=== PATIENT | female | born 1935 | race Two or more races ===

== ENCOUNTER → 2024-06-10 | Outpatient (CLI) | payer MEDICARE, BC, SELFPAY ==
[2024-06-10 09:33] LABS: Glucose Estimated Average 160 mg/dL (80-131); Hemoglobin A1C 7.2 % Hgb (4.8-6.0)
[2024-06-10 09:58] LABS: Alanine Aminotransferase 16 U/L (10-49); Albumin, Serum 4.9 gm/dL (3.4-4.8); Albumin/Globulin Ratio 2.6 (1.2-2.2); Alkaline Phosphatase 23 U/L (46-116); Anion Gap 9 (7-16); Aspartate Amino Transferase 15 U/L (0-34); BUN/Creatinine Ratio 39 Ratio (12-20); Bilirubin,Total 0.5 mg/dL (0.3-1.2); Blood Urea Nitrogen 31 mg/dL (9-23); Carbon Dioxide 29.3 mMol/L (20.0-31.0); Cardiac Risk Estimate 3.2 RATIO (3.7-5.6); Chloride 104 mMol/L (98-107); Cholesterol 133 mg/dL (132-200); Creatinine (Component) 0.8 mg/dL (0.6-1.3); Globulin 1.9 gm/dL (2.3-3.5); Glucose 166 mg/dL (74-106); HDL Cholesterol 41 mg/dL (40-60); LDL Cholesterol,Calculated 62 mg/dL (0-130); Osmolality,Calculated 293 (275-295); Potassium 4.1 mMol/L (3.4-5.1); Sodium 142 mMol/L (136-145); Thyroid Stimulating Hormone 2.68 uIU/mL (0.55-4.78); Total Protein 6.8 gm/dL (5.7-8.2); Triglycerides 152 mg/dL (30-150); eGFR > 60 See Note
== END | disposition home or self-care (01) ==
LOC: COPL 08:14
PROVIDERS: PCP Internal Medicine; Referring Provider Internal Medicine; Visit Provider Internal Medicine
DX: E11.9 Type 2 diabetes mellitus without complications (principal); E78.5 Hyperlipidemia, unspecified; I10 Essential (primary) hypertension
CPT/HCPCS: 36415; 80053; 80061; 83036; 84443

== ENCOUNTER → 2024-07-15 | Outpatient (CLI) | payer MEDICARE, BC, SELFPAY ==
--- NOTE | 2024-07-15 14:45 | XR_ITS ---
Examination: Screening digital mammography, bilateral Computer aided detection 3-D breast Tomosynthesis, bilateral Date and time of exam: July 15, 2024 1450 hours Compared to mammograms dating to June 13, 2019 Indication: Screening Technique: Nonmagnified MLO, CC views of the breasts to been obtained, reconstructed from 3-D Tomosynthesis images. R2 computer aided detection program utilized for evaluation of suspicious masses and/or abnormal calcifications. 3-D Tomosynthesis images obtained. Findings: The breasts are extremely dense which limits the sensitivity of mammography Benign calcifications. No definite suspicious masses Impression: BI-RADS category II: Benign Findings. Recommend 1 year follow-up mammogram. Recommend baseline bilateral breast sonography, given the extremely dense breast architecture
== END | disposition home or self-care (01) ==
LOC: CDIM 14:23
PROVIDERS: Referring Provider Specialist; Visit Provider Specialist
DX: Z12.31 Encounter for screening mammogram for malignant neoplasm of breast (principal); R92.323 Mammographic fibroglandular density, bilateral breasts; R92.1 Mammographic calcification found on diagnostic imaging of breast
CPT/HCPCS: 77063; 77067

== ENCOUNTER 2024-07-16 08:00 | Emergency (ER) | payer MEDICARE, BC, SELFPAY ==
[2024-07-16 08:12] VITALS: BP 173/88; PULSE 85; RESP 18; TEMP 36.7; O2SAT 95; BMI 22.0
--- NOTE | 2024-07-16 08:22 | XR_ITS ---
Examination: CT cervical spine without contrast 2-D sagittal reconstructions 2-D coronal reconstructions 3-D reconstructions. Exam date and time:July 16, 2024 0913 hours INDICATIONS: Patient fell this morning with injury to the neck, neck pain CTDI:vol (mGy) 7.71 DLP: (mGycm) 156 Technique: Multiple 2 mm axial sections of the cervical spine have been obtained. The coronal and sagittal reconstructions have been obtained. 3-D reconstructions have been obtained. Low dose protocols were performed. One or more of the following dose reduction techniques were used; automated exposure control, adjustment of the mA and/or KV according to patient size, use of iterative reconstruction technique. Findings: Axial sections demonstrate intact base of the skull. Advanced degenerative disc disease C4-C5, C5-C6, C6-C7 C1 exhibit satisfactory relationship to the odontoid. No acute cervical vertebral body fracture seen. Alignment posterior spinous processes satisfactory. Impression: No acute cervical fracture.
--- NOTE | 2024-07-16 08:22 | XR_ITS ---
Examination: CT brain head without contrast. 2-D sagittal coronal reconstructions Date and time of exam:July 16, 2024 0913 hours Comparison June 29, 2023 INDICATIONS: Patient fell this morning with injury to the head, head pain CTDI: vol (mGy):52.7 DLP: (mGycm):975 Technique: Multiple CT axial sections of the brain have been obtained, 5 mm slice thickness. Contrast has not been administered. 2-D sagittal, coronal reconstructions have been obtained Low dose protocols were performed. One or more of the following dose reduction techniques were used; automated exposure control, adjustment of the mA and/or KV according to patient size, use of iterative reconstruction technique. Findings: No significant ventricular enlargement. Intra-axial or extra-axial hemorrhage density is not seen. No mass effect or midline shift Basal cisterns are not remarkable. Fourth ventricle is midline. Cranial vault intact. Impression: Negative for acute hemorrhage, mass effect or midline shift
--- NOTE | 2024-07-16 08:22 | PD.EDHEAD ---
ED Head Injury RME/HPI General Chief complaint: Head Injury Stated complaint: RIGHT HEAD INJURY POST FALL INTO DOOR Time Seen by Provider: 07/16/24 08:07 Source: patient Arrival date/time: 07/16/24 08:00 89-year-old female with a history of hyperlipidemia, type 2 diabetes presents to the emergency room with a chief complaint of tripping over her rug in the restroom and hitting her head on the door. Patient denies any dizziness lightheadedness or headaches and states she did not have a syncopal episode but tripped on a rug. Mode of arrival: ambulatory Limitations: no limitations Related Data Home Medications ?Medication ?Instructions ?Recorded ?Confirmed atorvastatin 10 mg tablet (Lipitor) 10 mg PO HS #0 tabs 10/13/15 03/18/21 fenofibrate nanocrystallized 145 145 mg PO QDAY #0 tabs 10/13/15 03/18/21 mg tablet (Tricor) Aspirin (Aspir 81) 1 tab PO QDAY ##0 09/22/16 03/18/21 Glipizide/Metformin Hcl 1 tab PO BID ##0 09/22/16 03/18/21 (Glipizide-Metformin 2.5-500 Mg) TYLENOL PM 1 tab-cap PO HS ##0 09/22/16 03/18/21 Vitamin E (Dl,Tocopheryl Acet) 400 unit PO DAILY #0 caps 09/22/16 03/18/21 (Vitamin E) fexofenadine 180 mg tablet 180 mg PO QDAY #0 tabs 09/22/16 03/18/21 (Nguyen Allergy) gabapentin 100 mg capsule 100 mg PO HS #0 caps 09/22/16 03/18/21 melatonin 3 mg tablet 3 mg PO HS PRN SLEEPLESSNESS #0 09/22/16 03/18/21 tabs spironolactone 25 mg tablet 25 mg PO QDAY #0 tabs 09/22/16 03/18/21 (Aldactone) triamcinolone acetonide 55 mcg 10.8 ml both nostrils BID ##0 09/22/16 03/18/21 nasal spray aerosol (Nasacort) Review of Systems Review of Systems Systems Reviewed: All systems reviewed, normal except as documented Constitutional Constitutional: Reports system reviewed and no additional complaints, except as documented, Denies fatigue, Denies fever(s), Denies headache(s) and Denies weakness Eyes Eyes: Reports system reviewed and no additional complaints, except as documented, Denies blurry vision and Denies change in vision ENT Ears, Nose, Mouth, and Throat: Reports system reviewed and no additional complaints, except as documented, Denies otalgia, Denies headache(s), Denies nasal congestion, Denies throat swelling and Denies vertigo Cardiovascular Cardiovascular: Reports system reviewed and no additional complaints, except as documented, Denies chest pain, Denies dyspnea and Denies dyspnea on exertion Respiratory Respiratory: Reports system reviewed and no additional complaints, except as documented, Denies chest congestion, Denies cough, Denies dyspnea, Denies dyspnea on exertion and Denies wheezing Gastrointestinal Gastrointestinal: Reports system reviewed and no additional complaints, except as documented, Denies abdominal pain, Denies cramping, Denies nausea and Denies vomiting Genitourinary Genitourinary: Reports system reviewed and no additional complaints, except as documented Musculoskeletal Musculoskeletal: Reports system reviewed and no additional complaints, except as documented and Denies back pain Integumentary/Breasts Skin/Breast: Reports system reviewed and no additional complaints, except as documented and Denies wounds Neurologic Neurologic: Reports system reviewed and no additional complaints, except as documented, Denies confusion, Denies headache(s), Denies lack of coordination, Denies vertigo and Denies weakness Psychiatric Psychiatric: Reports system reviewed and no additional complaints, except as documented, Denies anxiety, Denies confusion, Denies depression, Denies paranoia, Denies suicidal ideation and Denies tactile hallucinations Endocrine Endocrine: Reports system reviewed and no additional complaints, except as documented and Denies fatigue Hematologic/Lymphatic Hematologic/Lymphatic: Reports system reviewed and no additional complaints, except as documented and Denies lymphadenopathy Allergic/Immunologic Allergic/Immunologic: Reports system reviewed and no additional complaints, except as documented, Denies throat swelling, Denies urticaria and Denies wheezing Past Medical History Past Medical History NEUROLOGIC: Negative Neurological Disorders or Seizures CARDIAC: Positive Cardiac Disorders, Hypercholesterolemia and Hypertension; Negative Congestive Heart Failure RESPIRATORY: Negative Chronic Obstructive Pulmonary Disease (COPD) GASTROINTESTINAL: Negative Gastrointestinal Disorders or Hepatitis GENITOURINARY: Negative Genitourinary Disorders or Renal Disease REPRODUCTIVE: Negative Pelvic Inflammatory Disease MUSCULOSKELETAL: Positive Carpal Tunnel Syndrome; Negative Musculoskeletal Disorders ENT: Positive Cataracts ENDOCRINE: Positive Endocrine Disorders, Diabetes Mellitus Type 2 and Hypothyroidism; Negative Diabetes Mellitus Type 1 HEMATOLOGIC: Negative Blood Disorders OTHER HISTORY: Negative Autoimmune Disease, Falls, Blood Transfusions, Blood Transfusion Reaction, Anesthesia Reactions, Chemotherapy, Radiation Therapy, MRSA or Cancer Surgical History SURGICAL: Positive Ear Surgery, Tonsillectomy, Abdominal Surgery, Joint Replacement and Hysterectomy; Negative Cardiac Surgery, Endocrine Surgery, Nephrectomy, Neurologic Surgery or Mastectomy Social History SMOKING STATUS: Never smoker ED Exam General Limitations: Present no limitations General appearance: Present alert and in no apparent distress Head Head exam: Present atraumatic, normocephalic and normal inspection Expanded Head Exam Head exam physical: Present contusion; Absent laceration, abrasion, hematoma, raccoon eyes, Verduzco's sign, tenderness of temporal artery, CSF rhinorrhea or CSF otorrhea Head image:  1. Bruising contusion Eye Eye exam: Present normal appearance, PERRL and EOMI ENT ENT exam: Present normal exam, normal oropharynx and mucous membranes moist Neck Neck exam: Present normal inspection, full ROM and trachea midline Chest Chest inspection: Present normal inspection and symmetric chest wall rise Respiratory Respiratory exam: Present normal lung sounds bilaterally Cardiovascular Cardiovascular exam: Present regular rate, normal rhythm and normal heart sounds Abdominal Exam Abdominal exam: Present soft and normal bowel sounds Extremities Exam Extremities exam: Present normal inspection and full ROM Back Exam Back exam: Present normal inspection and full ROM Neurological Exam Neurological exam: Present alert, oriented X3 and CN II-XII intact Psychiatric Psychiatric exam: Present normal affect and normal mood Skin Skin exam: Present warm, dry, intact and normal color Course Quality Measures none Orders Category Date Time Status CT cervical spine wo con Stat Exams 07/16/24 08:[address] head/brain wo con Stat Exams 07/16/24 08:22 Completed Vital Signs Vital signs: Vital Signs Temperature 98.1 F 07/16/24 08:12 Pulse Rate 85 07/16/24 08:12 Respiratory Rate 18 07/16/24 08:12 Blood Pressure 173/88 H 07/16/24 08:12 Pulse Oximetry (%) 95 07/16/24 08:12 Oxygen Delivery Method Room Air 07/16/24 08:12 Head Injury MDM Narrative MDM Narrative:: 89-year-old female with a history of hyperlipidemia, type 2 diabetes presents to the emergency room with a chief complaint of tripping over her rug in the restroom and hitting her head on the door. Patient denies any dizziness lightheadedness or headaches and states she did not have a syncopal episode but tripped on a rug. Patient is hemodynamically stable and in no apparent distress Physical examination shows a normal neurological examination. The patient has a GCS of 15 she is alert and oriented x 3. Pupils are PERRLA EOMs are intact the patient has a normal steady gait. The patient denies any headaches dizziness lightheadedness or syncopal episodes. Patient states she tripped on a rug fell and hit her head. The patient has a small contusion to the right upper head frontal area. Patient has not vomited. There is no obvious sign of any skull fracture. Patient is not altered. CT of the head and brain was completed and was negative for any acute hemorrhage mass effect or midline shift. Cervical CT was negative for any fracture Patient was discharged and educated to follow-up with her primary care provider and return to the emergency room for any evidence of worsening signs or symptoms Patient data External records reviewed:: [facility] previous records Clinical information provided by:: patient Social determinants that could affect healthcare access:: none Patient has the following chronic illnesses:: No chronic illness How is presenting disease/condition affected by chronic disease/condition?: no chronic disease Evaluation data The following diagnostics were reviewed and interpreted by me:: lab results and radiology exam(s) Lab and/or radiology exams considered but not ordered:: Labs and radiology exams considered and ordered Interpretation Summary: CT head and brain-Findings: No significant ventricular enlargement. Intra-axial or extra-axial hemorrhage density is not seen. No mass effect or midline shift Basal cisterns are not remarkable. Fourth ventricle is midline. Cranial vault intact. Impression: Negative for acute hemorrhage, mass effect or midline shift CT cervical neck-Findings: Axial sections demonstrate intact base of the skull. Advanced degenerative disc disease C4-C5, C5-C6, C6-C7 C1 exhibit satisfactory relationship to the odontoid. No acute cervical vertebral body fracture seen. Alignment posterior spinous processes satisfactory. Impression: No acute cervical fracture. Medications / Prescriptions Medications or Prescriptions considered but not ordered:: No medication given Medication administrations:: No medication given Consultations Consultation(s) initiated? (list below): No Diagnosis Differential diagnosis head injury: concussion without loss of consciousness, epidural hematoma, closed head injury, subarachnoid hematoma, subdural hematoma and concussion with loss of consciousness Most likely diagnosis given after review of the tests above:: Closed head injury Admission Indicated Admission indicated?: not indicated Admission Request Was there a request for admission?: No Disposition Plan Disposition Plan: Discharge Discharge Attestation Discharge Attestation: The patient and all family members were given an opportunity to ask questions and understood the discharge instructions. Discharge instructions specifically effects, indications for sooner follow up or return to the emergency department, and the expected course of current diagnosis. Patient condition: Stable Discharge Plan Plan Patient Disposition: HOME (Self Care) Disposition Comment: Stable Prescriptions/Referrals Prescriptions/Med Rec: No Action atorvastatin [Lipitor] 10 MG tablet 10 mg PO HS Qty: 0 fenofibrate nanocrystallized [Tricor] 145 MG tablet 145 mg PO QDAY Qty: 0 Aspirin (Aspir 81) 81 MG TABLET.DR 1 tab PO QDAY Qty: 0 melatonin 3 MG tablet 3 mg PO HS PRN (Reason: SLEEPLESSNESS) Qty: 0 fexofenadine [Nguyen Allergy] 180 MG tablet 180 mg PO QDAY Qty: 0 spironolactone [Aldactone] 25 MG tablet 25 mg PO QDAY Qty: 0 triamcinolone acetonide [Nasacort] 10.8 ML aerosol,spray 10.8 ml both nostrils BID Qty: 0 gabapentin 100 MG capsule 100 mg PO HS Qty: 0 Glipizide/Metformin Hcl (Glipizide-Metformin 2.5-500 Mg) 1 TAB tablet 1 tab PO BID Qty: 0 TYLENOL PM 1 tab-cap PO HS Qty: 0 Vitamin E (Dl,Tocopheryl Acet) (Vitamin E) 400 UNIT capsule 400 unit PO DAILY Qty: 0 Referrals: Kendrick Canela MD [Primary Care Provider] - In 1 week Problem List Clinical Impression: Closed head injury Patient/Caregiver Discharge Instructions Education Materials: ED Head Injury (Adult) Additional Instructions: Please follow-up with your primary care provider in the next [address] of your head and brain and neck was completed and was negative for any acute cervical fracture or any acute findings in your brain and head. For any evidence of worsening signs or symptoms return to the emergency room immediately Print Language: Bolivian Stand Alone Forms: Alana Award Info., Patient Portal Info Letter PA/INTERNET MARKETING DIRECTOR Supervising Physician PA/INTERNET MARKETING DIRECTOR Supervising Physician: Dr. Gerardo
== END 2024-07-16 10:53 | disposition home or self-care (01) ==
PROVIDERS: Emergency Provider Emergency Medicine; PCP Internal Medicine
DX: S09.90XA Unspecified injury of head, initial encounter (principal); W01.198A Fall on same level from slipping, tripping and stumbling with subsequent striking against other object, initial encounter; E11.9 Type 2 diabetes mellitus without complications; M54.2 Cervicalgia
CPT/HCPCS: 70450; 72125; 99284

== ENCOUNTER → 2024-07-30 | Outpatient (CLI) | payer MEDICARE, BC, SELFPAY ==
--- NOTE | 2024-07-30 15:00 | XR_ITS ---
Examination: Breast ultrasound complete, bilateral Date and time of exam: July 30, 2024 1527 hours INDICATIONS: Diagnosis extremely dense breast architecture, fibrocystic breast disease Technique: Real-time grayscale ultrasonographic imaging bilateral breasts, including all 4 quadrants as well as nipple retroareolar and axillary regions. Findings: Sonographic images right breast 3:00 cyst 3 x 3 mm, no solid nodules Sonographic images left breast No cystic or solid mass IMPRESSION: BI-RADS Category 2: Benign findings
== END | disposition home or self-care (01) ==
LOC: CDIM 14:44
PROVIDERS: PCP Internal Medicine; Referring Provider Specialist; Visit Provider Specialist
DX: N60.01 Solitary cyst of right breast (principal)
CPT/HCPCS: 76641

== ENCOUNTER → 2024-10-14 | Outpatient (CLI) | payer MEDICARE, BC, SELFPAY ==
[2024-10-14 09:39] LABS: Glucose Estimated Average 151 mg/dL (80-131); Hemoglobin A1C 6.9 % Hgb (4.8-6.0)
[2024-10-14 09:58] LABS: Alanine Aminotransferase 13 U/L (10-49); Albumin, Serum 4.3 gm/dL (3.4-4.8); Albumin/Globulin Ratio 2.2 (1.2-2.2); Alkaline Phosphatase 22 U/L (46-116); Anion Gap 11 (7-16); Aspartate Amino Transferase 15 U/L (0-34); BUN/Creatinine Ratio 30 Ratio (12-20); Bilirubin,Total 0.5 mg/dL (0.3-1.2); Blood Urea Nitrogen 24 mg/dL (9-23); Calcium 9.3 mg/dL (8.3-10.6); Calcium (Corrected) 9.3 mg/dL (8.5-10.1); Carbon Dioxide 28.8 mMol/L (20.0-31.0); Cardiac Risk Estimate 3.3 RATIO (3.7-5.6); Chloride 106 mMol/L (98-107); Cholesterol 119 mg/dL (132-200); Creatinine (Component) 0.8 mg/dL (0.6-1.3); Glucose 141 mg/dL (74-106); HDL Cholesterol 36 mg/dL (40-60); LDL Cholesterol,Calculated 53 mg/dL (0-130); Osmolality,Calculated 296 (275-295); Potassium 4.1 mMol/L (3.4-5.1); Sodium 146 mMol/L (136-145); Thyroid Stimulating Hormone 3.29 uIU/mL (0.55-4.78); Total Protein 6.3 gm/dL (5.7-8.2); Triglycerides 148 mg/dL (30-150); eGFR > 60 See Note
== END | disposition home or self-care (01) ==
LOC: COPL 07:42
PROVIDERS: PCP Internal Medicine; Referring Provider Internal Medicine; Visit Provider Internal Medicine
DX: E03.9 Hypothyroidism, unspecified (principal); E11.9 Type 2 diabetes mellitus without complications; E78.5 Hyperlipidemia, unspecified; I10 Essential (primary) hypertension
CPT/HCPCS: 36415; 80053; 80061; 83036; 84443

== ENCOUNTER 2024-12-25 23:18 | Emergency (ER) | payer MEDICARE, BC, SELFPAY ==
[2024-12-25 23:21] VITALS: BMI 21.9
[2024-12-26 00:05] VITALS: BP 161/61; PULSE 89; RESP 18; TEMP 37.2; O2SAT 96
--- NOTE | 2024-12-26 00:23 | XR_ITS ---
Examination: CT cervical spine without contrast 2-D sagittal reconstructions 2-D coronal reconstructions 3-D reconstructions. Exam date and time:December 26, 2024, 0046 hours INDICATIONS: Ground-level fall 2 hours ago with injury to the neck, neck pain CTDI:vol (mGy) 12.56 DLP: (mGycm) 284 Technique: Multiple 2 mm axial sections of the cervical spine have been obtained. The coronal and sagittal reconstructions have been obtained. 3-D reconstructions have been obtained. Low dose protocols were performed. One or more of the following dose reduction techniques were used; automated exposure control, adjustment of the mA and/or KV according to patient size, use of iterative reconstruction technique. Findings: Axial sections demonstrate intact base of the skull. C1 exhibit satisfactory relationship to the odontoid. No acute cervical vertebral body fracture seen. Alignment posterior spinous processes satisfactory. Impression: No acute cervical fracture.
--- NOTE | 2024-12-26 00:23 | XR_ITS ---
Examination: CT brain head without contrast. 2-D sagittal coronal reconstructions Date and time of exam:December 26, 2024 0044 hours INDICATIONS: Injury to the head, ground level fall 2 hours ago with head pain CTDI: vol (mGy):. DLP: (mGycm):991. Technique: Multiple CT axial sections of the brain have been obtained, 5 mm slice thickness. Contrast has not been administered. 2-D sagittal, coronal reconstructions have been obtained Low dose protocols were performed. One or more of the following dose reduction techniques were used; automated exposure control, adjustment of the mA and/or KV according to patient size, use of iterative reconstruction technique. Findings: No significant ventricular enlargement. Intra-axial or extra-axial hemorrhage density is not seen. No mass effect or midline shift Basal cisterns are not remarkable. Fourth ventricle is midline. Cranial vault intact. Impression: Negative for acute hemorrhage, mass effect or midline shift
[2024-12-26] MEDS: DIPHTH,PERTUSS(ACELL),TET VAC 0.5 ML SYR- ADULT IMi (01:19)
--- NOTE | 2024-12-26 01:22 | PRELIM_ITS ---
CT scan of the cervical spine without intravenous contrast (axial sections with sagittal and coronal reformats) December 26, 2024 0046 hours Clinical History: Fall Comparison: CT of July 16, 2024. Findings: There is no fracture or subluxation. The prevertebral soft tissues are unremarkable. Degenerative changes of the imaged portions of the spine. Chronic multilevel disc disease. Vascular calcifications. Right apical lung scarring. Impression: No evidence of fracture or subluxation. Report Electronically Signed By: Joe García 12/26/2024 1:21:30 AM [EST]
--- NOTE | 2024-12-26 01:25 | PRELIM_ITS ---
CT scan of the head without intravenous contrast (axial sections with sagittal and coronal reformats) December 26, 2024 0044 hours Clinical History: Fall Comparison: CT of July 16, 2024. Findings: There is no evidence of intracranial hemorrhage, mass effect or midline shift. There are periventricular white matter hypodensities, compatible with chronic small vessel ischemia. There is severe volume loss. The calvarium is intact. The mastoid air cells and the visualized paranasal sinuses are clear. Impression: No evidence of intracranial hemorrhage, midline shift or calvarial fracture. Periventricular chronic small vessel ischemia and volume loss. Report Electronically Signed By: Joe García 12/26/2024 1:24:07 AM [EST]
[2024-12-26 01:43] VITALS: RESP 14
--- NOTE | 2024-12-26 05:07 | PD.EDHEAD ---
ED Head Injury RME/HPI General Chief complaint: Head Injury Stated complaint: FALL- HEADACHE Time Seen by Provider: 12/26/24 00:23 Arrival date/time: 12/25/24 23:18 89F with history of DM presents to ED with head, R elbow, and R knee pain after trip and fall. Patient denies LOC. Patient has not had a tetanus shot in the past 5 years. Limitations: no limitations Related Data Home Medications ?Medication ?Instructions ?Recorded ?Confirmed atorvastatin 10 mg tablet (Lipitor) 10 mg PO HS #0 tabs 10/13/15 03/18/21 fenofibrate nanocrystallized 145 145 mg PO QDAY #0 tabs 10/13/15 03/18/21 mg tablet (Tricor) Aspirin (Aspir 81) 1 tab PO QDAY ##0 09/22/16 03/18/21 Glipizide/Metformin Hcl 1 tab PO BID ##0 09/22/16 03/18/21 (Glipizide-Metformin 2.5-500 Mg) TYLENOL PM 1 tab-cap PO HS ##0 09/22/16 03/18/21 Vitamin E (Dl,Tocopheryl Acet) 400 unit PO DAILY #0 caps 09/22/16 03/18/21 (Vitamin E) fexofenadine 180 mg tablet 180 mg PO QDAY #0 tabs 09/22/16 03/18/21 (Nguyen Allergy) gabapentin 100 mg capsule 100 mg PO HS #0 caps 09/22/16 03/18/21 melatonin 3 mg tablet 3 mg PO HS PRN SLEEPLESSNESS #0 09/22/16 03/18/21 tabs spironolactone 25 mg tablet 25 mg PO QDAY #0 tabs 09/22/16 03/18/21 (Aldactone) triamcinolone acetonide 55 mcg 10.8 ml both nostrils BID ##0 09/22/16 03/18/21 nasal spray aerosol (Nasacort) Allergies Allergy/AdvReac Type Severity Reaction Status Date / Time No Known Allergies Allergy Verified 12/25/24 23:28 Review of Systems Review of Systems Systems Reviewed: All systems reviewed, normal except as documented Constitutional Constitutional: Reports system reviewed and no additional complaints, except as documented, Reports as per HPI, Denies fever(s) and Reports headache(s) (pain) ENT Ears, Nose, Mouth, and Throat: Denies disequilibrium and Reports headache(s) (pain) Cardiovascular Cardiovascular: Reports system reviewed and no additional complaints, except as documented, Denies chest pain and Denies dyspnea Respiratory Respiratory: Reports system reviewed and no additional complaints, except as documented, Denies cough and Denies dyspnea Gastrointestinal Gastrointestinal: Reports system reviewed and no additional complaints, except as documented, Denies abdominal pain, Denies nausea and Denies vomiting Musculoskeletal Musculoskeletal: Reports as per HPI and Reports arthralgias Integumentary/Breasts Skin/Breast: Reports as per HPI and Reports skin pain Neurologic Neurologic: Reports system reviewed and no additional complaints, except as documented, Denies confusion, Denies disequilibrium and Reports headache(s) (pain) Psychiatric Psychiatric: Denies confusion Past Medical History Past Medical History NEUROLOGIC: Negative Neurological Disorders or Seizures CARDIAC: Positive Cardiac Disorders, Hypercholesterolemia and Hypertension; Negative Congestive Heart Failure RESPIRATORY: Negative Chronic Obstructive Pulmonary Disease (COPD) GASTROINTESTINAL: Negative Gastrointestinal Disorders or Hepatitis GENITOURINARY: Negative Genitourinary Disorders or Renal Disease REPRODUCTIVE: Negative Pelvic Inflammatory Disease MUSCULOSKELETAL: Positive Carpal Tunnel Syndrome; Negative Musculoskeletal Disorders ENT: Positive Cataracts ENDOCRINE: Positive Endocrine Disorders, Diabetes Mellitus Type 2 and Hypothyroidism; Negative Diabetes Mellitus Type 1 HEMATOLOGIC: Negative Blood Disorders OTHER HISTORY: Negative Autoimmune Disease, Falls, Blood Transfusions, Blood Transfusion Reaction, Anesthesia Reactions, Chemotherapy, Radiation Therapy, MRSA or Cancer Surgical History SURGICAL: Positive Ear Surgery, Tonsillectomy, Abdominal Surgery, Joint Replacement and Hysterectomy; Negative Cardiac Surgery, Endocrine Surgery, Nephrectomy, Neurologic Surgery or Mastectomy Social History SMOKING STATUS: Never smoker ED Exam General Limitations: Present no limitations General appearance: Present alert and in no apparent distress Head Head exam: Present atraumatic Eye Eye exam: Present normal appearance, PERRL and EOMI ENT ENT exam: Present normal exam, normal oropharynx and mucous membranes moist Neck Neck exam: Present normal inspection, full ROM and trachea midline Chest Chest inspection: Present normal inspection and symmetric chest wall rise Respiratory Respiratory exam: Present normal lung sounds bilaterally Cardiovascular Cardiovascular exam: Present regular rate, normal rhythm and normal heart sounds Abdominal Exam Abdominal exam: Present soft and normal bowel sounds Extremities Exam Extremities exam: Present full ROM Expanded Upper Extremity Exam Elbow exam: Present full ROM (R) and abrasion Expanded Lower Extremity Exam Knee exam: Present full ROM (R) and abrasion Back Exam Back exam: Present normal inspection and full ROM Neurological Exam Neurological exam: Present alert, oriented X3 and CN II-XII intact Psychiatric Psychiatric exam: Present normal affect and normal mood Skin Skin exam: Present warm, dry, intact and normal color Course Quality Measures none Orders Category Date Time Status Wound Care NOW Care 12/26/24 00:[address] cervical spine wo con Stat Exams 12/26/24 00:[address] head/brain wo con Stat Exams 12/26/24 00:23 Taken TET,DIP/PERT AC (Adult)-Tdap [Boostrix Adult (Tdap) Med 12/26/24 00:23 Discontinued Vacc] 0.5 ml IMI .ONCE ONE Vital Signs Vital signs: Vital Signs Temperature 98.9 F 12/26/24 00:05 Pulse Rate 89 12/26/24 00:05 Respiratory Rate 18 12/26/24 00:05 Blood Pressure 161/61 H 12/26/24 00:05 Pulse Oximetry (%) 96 12/26/24 00:05 Oxygen Delivery Method Room Air 12/26/24 00:05 O2 at 96% on RA and WNLs Head Injury MDM Narrative MDM Narrative:: 89F with history of DM presents to ED with head, R elbow, and R knee pain after trip and fall. Patient denies LOC. Patient has not had a tetanus shot in the past 5 years. Physical exam reveals normal pupil response and EOM. No gross head trauma. Neck ROM intact. Small skin abrasions on R elbow and knee. No gross tenderness. ROM intact. Gait normal. Patient is afebrile, calm, and alert. CT unremarkable. Wounds cleaned and bandaged. Tdap given. Patient data External records reviewed:: [facility] previous records Clinical information provided by:: patient Social determinants that could affect healthcare access:: none Patient has the following chronic illnesses:: DM How is presenting disease/condition affected by chronic disease/condition?: no chronic disease Evaluation data The following diagnostics were reviewed and interpreted by me:: radiology exam(s) Lab and/or radiology exams considered but not ordered:: ordered Interpretation Summary: above Medications / Prescriptions Medications or Prescriptions considered but not ordered:: ordered Medication administrations:: Medication Administration History Discontinued Medications Diphtheria/Tetanus/Acell Pertussis (Diphth,Pertuss(Acell),Tet Vac 0.5 Ml Syr- Adult) 0.5 ml IMi .ONCE ONE Stop: 12/26/24 00:24 Last Admin: 12/26/24 01:19 Dose: 0.5 ml Documented By: CVL above Consultations Consultation(s) initiated? (list below): No Diagnosis Differential diagnosis head injury: concussion without loss of consciousness, epidural hematoma, closed head injury, subarachnoid hematoma, postconcussion syndrome and subdural hematoma Most likely diagnosis given after review of the tests above:: CHI and skin abrasion Admission Indicated Admission indicated?: not indicated Admission Request Was there a request for admission?: No Disposition Plan Disposition Plan: Discharge Discharge Attestation Discharge Attestation: The patient and all family members were given an opportunity to ask questions and understood the discharge instructions. Discharge instructions specifically effects, indications for sooner follow up or return to the emergency department, and the expected course of current diagnosis. Patient condition: Stable Discharge Plan Plan Patient Disposition: HOME (Self Care) Discharge Disposition comment: Stable Prescriptions/Referrals Prescriptions/Med Rec: No Action atorvastatin [Lipitor] 10 MG tablet 10 mg PO HS Qty: 0 fenofibrate nanocrystallized [Tricor] 145 MG tablet 145 mg PO QDAY Qty: 0 Aspirin (Aspir 81) 81 MG TABLET.DR 1 tab PO QDAY Qty: 0 melatonin 3 MG tablet 3 mg PO HS PRN (Reason: SLEEPLESSNESS) Qty: 0 fexofenadine [Nguyen Allergy] 180 MG tablet 180 mg PO QDAY Qty: 0 spironolactone [Aldactone] 25 MG tablet 25 mg PO QDAY Qty: 0 triamcinolone acetonide [Nasacort] 10.8 ML aerosol,spray 10.8 ml both nostrils BID Qty: 0 gabapentin 100 MG capsule 100 mg PO HS Qty: 0 Glipizide/Metformin Hcl (Glipizide-Metformin 2.5-500 Mg) 1 TAB tablet 1 tab PO BID Qty: 0 TYLENOL PM 1 tab-cap PO HS Qty: 0 Vitamin E (Dl,Tocopheryl Acet) (Vitamin E) 400 UNIT capsule 400 unit PO DAILY Qty: 0 Referrals: Kendrick Canela MD [Primary Care Provider] - In 1 week Problem List Clinical Impression: Closed head injury, Abrasion of skin Patient/Caregiver Discharge Instructions Education Materials: ED Abrasions, ED Head Injury with Sleep ... Additional Instructions: Please follow-up with PCP within 24-48 hours and return immediately if symptoms worsen. Print Language: Israeli Stand Alone Forms: Patient Portal Info Letter PA/PLACEMENT MANAGER Supervising Physician PA/PLACEMENT MANAGER Supervising Physician: Dr. Sun
== END 2024-12-26 01:44 | disposition home or self-care (01) ==
PROVIDERS: Emergency Provider Emergency Medicine; PCP Internal Medicine
DX: S09.90XA Unspecified injury of head, initial encounter (principal); S80.211A Abrasion, right knee, initial encounter; S50.311A Abrasion of right elbow, initial encounter; W01.0XXA Fall on same level from slipping, tripping and stumbling without subsequent striking against object, initial encounter; Z23 Encounter for immunization; E11.9 Type 2 diabetes mellitus without complications
CPT/HCPCS: 70450; 72125; 90471; 90715; 99283

== ENCOUNTER → 2025-03-12 | Outpatient (CLI) | payer MEDICARE, BC, SELFPAY ==
--- NOTE | 2025-03-12 12:52 | XR_ITS ---
Examination: Left hip AP, lateral, AP pelvis 3 views Technique: Hip AP lateral, AP pelvis, 3 views Exam date and time: March 12, 2025, 1314 hours INDICATIONS: Left hip pain after falling 2 weeks ago. FINDINGS: Severe osteopenia No left hip fracture or dislocation Right hip bones of the pelvis intact Mild to moderate narrowing hip joints IMPRESSION: No acute hip or pelvic fracture.
== END | disposition home or self-care (01) ==
LOC: CDIM 12:41
PROVIDERS: PCP Internal Medicine; Referring Provider Orthopaedic Surgery; Visit Provider Orthopaedic Surgery
DX: M25.552 Pain in left hip (principal)
CPT/HCPCS: 73503